=== PATIENT | male | born 2000 | race Caucasian/White ===

== ENCOUNTER 2024-10-21 09:55 | Emergency (ER) | payer MEDICAID ==
[~2024-10-21] VITALS: Ht 175.3 cm; Wt 82.0 kg
[2024-10-21 10:02] VITALS: TEMP 98.2
[2024-10-21 10:09] VITALS: BP 111/71; PULSE 80; RESP 18; O2SAT 100
[2024-10-21] MEDS ORDERED: PREG300C PO (11:01)
== END 2024-10-21 11:20 | disposition home or self-care (01) ==
LOC: EMS 10:01
DX: G40.909 Epilepsy, unspecified, not intractable, without status epilepticus (principal); G43.909 Migraine, unspecified, not intractable, without status migrainosus; Z76.0 Encounter for issue of repeat prescription
CPT/HCPCS: 99281; Z7502

== ENCOUNTER 2024-11-22 11:00 | Emergency (ER) | payer MEDICAID ==
[~2024-11-22] VITALS: Ht 177.8 cm; Wt 80.0 kg
[~2024-11-22 11:00] MED LIST: PREG300C PO
[2024-11-22] MEDS ORDERED: PREG300C PO (13:04)
[2024-11-22 13:25] VITALS: BP 122/70; PULSE 77; RESP 16; TEMP 98.2; O2SAT 99
== END 2024-11-22 13:25 | disposition home or self-care (01) ==
LOC: EMS 11:02
DX: G40.909 Epilepsy, unspecified, not intractable, without status epilepticus (principal); Z76.0 Encounter for issue of repeat prescription
CPT/HCPCS: 99281; Z7502